=== PATIENT | male | born 1955 | race African-American/Black ===

== ENCOUNTER 2016-07-26 13:15 | Emergency (ER) | payer MEDICARE, OTHER ==
[~2016-07-26] VITALS: Ht 172.7 cm; Wt 84.0 kg
[~2016-07-26 13:15] MED LIST: INSU3INS6
[2016-07-26 13:21] VITALS: BP 141/91
[2016-07-26] MEDS ORDERED: FLUORESCEIN SODIUM 1MG/STRIP OP ONE ×2 (14:15→14:45)
[2016-07-26] MEDS ORDERED: BALANCED SALT IRRIG SOLN 15ML IO ONE (14:15)
[2016-07-26] MEDS ORDERED: TETRACAINE 0.5% OPHTH DROPS 4ML OP ONE (14:15)
[2016-07-26] MEDS ORDERED: LIDOCAINE HCL 1% 20ML VIAL (Pyxis) INJ INFIL ONE (16:00)
[2016-07-26] MEDS ORDERED: LIDOCAINE/EPINEPHR/TETRACAINE 3ML TP ONE (16:00)
== END 2016-07-26 17:21 | disposition home or self-care (01) ==
LOC: ER 16:58
DX: H43.12 Vitreous hemorrhage, left eye (principal); E11.9 Type 2 diabetes mellitus without complications; Z79.4 Long term (current) use of insulin
CPT/HCPCS: 99283; 99284